=== PATIENT | female | born 1970 | race Caucasian/White ===

== ENCOUNTER 2020-03-15 10:38 | Emergency (ER) | payer MEDICARE, MEDICAID, SELFPAY ==
[2020-03-15 10:39] VITALS: BP 145/105; PULSE 97; RESP 18; TEMP 36; O2SAT 97; BMI 39.2
--- NOTE | 2020-03-15 11:43 | RAD_ITS ---
STUDY: X-RAY CHEST REASON FOR EXAM: Female, 49 years old. CHILLS, WEAKNESS/FATIGUE. BODY ACHES TECHNIQUE: AP upright portable view. COMPARISON: None. FINDINGS: Right IJ approach [id number] tip is in the SVC near the right upper atrial chamber. The lungs are clear and expanded. There is no demonstrated pleural abnormality. Normal size heart. Normal mediastinum and marisela. Normal visualized pulmonary arteries. Normal visualized aortic arch and descending thoracic aorta. Normal visualized thoracic spine. Normal visualized ribs, clavicles, and shoulders. There is no demonstrated abnormality of the visualized soft tissue structures of the upper abdomen. RAD/Chest 1 View (Portable) IMPRESSION: Normal x-ray examination of the chest. Electronically Signed: Miah Calabrese MD at 12:26 EST , Service support ,
--- NOTE | 2020-03-15 12:05 | ED.VIS.GEN ---
History of Present Illness Chief Complaint: Weakness Detail of Chief Complaint: Fever, Foul-smelling urine and respiratory symptoms Informant: Patient Onset: Days Context: Sudden Onset Timing: Continuous Quality: Infectious symptoms and urinary symptoms Location: Respiratory and Current Severity: Mild Maximum Severity: Moderate Worsened by: Dyspnea on exertion Relieved by: Nothing Associated Symptoms: Malaise, decreased appetite Narrative: Patient is a 49-year-old woman who went to urgent care because of fever, chills, dyspnea, mild cough, malaise, headache, aches and foul-smelling urine. Symptoms started several days ago. She reports generalized headache. Denies photophobia, neck pain or neck stiffness. She does report nausea without vomiting. She states she had some soft mushy stool. She denies blood or mucus in the stool. Denies black or maroon-colored stool. 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 Status: Acute (2) POTS (postural orthostatic tachycardia syndrome) Status: Acute (3) Hyperlipidemia Status: Acute (4) Raynauds disease Status: Acute (5) Neuropathic pain Status: Acute (6) History of venereal warts Status: Acute Past Medical History - Allergies and Home Meds Allergies/Adverse Reactions: Allergies No Known Allergies Allergy (Verified 12/07/18 14:25) Primary Care Physician: Gilson Bond DO [Primary Care Provider] - Prior records reviewed: Yes - Sjogren's disease Lives: Alone Smoking Status: Current every day smoker Alcohol: Rare Drugs: None Review of Systems General: Reports: Chills, Fever, Malaise Eyes: Denies: Visual changes - bilaterally, Blurred Vision - bilaterally ENT: Reports: Rhinorrhea, Sore throat. Denies: Bilateral ear pain Cardiovascular: Denies: Chest pain, Palpitations Respiratory: Reports: Dyspnea, Cough, Dyspnea on exertion. Denies: Sputum, Orthopnea, Paroxysmal nocturnal dyspnea Gastrointestinal: Reports: Nausea. Denies: Abdominal pain, Vomiting, Diarrhea, Melena, Hematochezia Genitourinary: Reports: - - Foul-smelling urine. Denies: Dysuria, Hematuria, Frequency Musculoskeletal: Reports: Myalgias, Extremity Pain. Denies: Swelling Skin: Denies: Rash, Wounds Neurological: Reports: Headache, Weakness, Parasthesia Psych: Reports: Depression Hematologic: Denies: Easy bruising, Easy bleeding Allergy: Denies: Uticaria Physical Exam Vital Signs/Narrative: Vital Signs Temp Pulse Resp BP Pulse Ox 03/15/20 10:39 96.8 F L 97 18 145/105 H 97 Inital Vital Signs reviewed: Yes General: Well nourished, Well developed, Obese Head: Normocephalic, Atraumatic Eyes: Perrl, EOMI. Negative for: Pale conjunctiva, Scleral icterus ENT: No rhinorrhea, TM's clear, Dry mucous membranes. Negative for: Moist mucous membranes Neck: Supple, Nontender, No lymphadenopathy, No JVD Cardiovascular: Regular rate, Regular rhythm, No murmurs, Normal S1, Normal S2 Respiratory: No distress, CTA bilaterally, Chest nontender Abdomen: Soft, Nontender, Nondistended, Normal bowel sounds, No masses Rectal: Deferred Back: Nontender, Normal Inspection. Negative for: CVA tenderness Extremities: Tenderness. Negative for: Calf Tenderness Skin: Normal color, No rash, No Trauma. Negative for: Cyanosis, Diaphoresis, Jaundice Neurological: Alert, Oriented x3, Cranial nerves II-XII grossly intact, Normal Strength, Normal Sensation Psychological: Depressed Diagnostic/Tx/Re-eval Impressions Chest X-Ray 03/15/20 11:43 IMPRESSION: Normal x-ray examination of the chest. Electronically Signed: Miah Calabrese MD at 12:26 EST , Service support , 03/15/20 11:43 Chest 1 View (Portable) [RAD] Stat 03/15/20 11:55 Mucosa - Nose SARS-CoV-2 Antigen (Rapid) - Final Laboratory Results 03/15/20 03/15/20 03/15/20 12:40 12:40 12:40 WBC 9.2 RBC 4.48 Hgb 13.6 Hct 39.8 MCV 88.8 MCH 30.4 MCHC 34.2 RDW Std Deviation 41.9 RDW Coeff of Cordelia 12.8 Plt Count 178 MPV 10.1 Immature Gran % (Auto) 0.500 Neut % (Auto) 81.3 H Lymph % (Auto) 7.4 L [place] % (Auto) 10.5 H Eos % (Auto) 0.1 Baso % (Auto) 0.2 Absolute Neuts (auto) 7.5 Absolute Lymphs (auto) 0.68 L Nucleated RBC % 0 Sodium 133 L Potassium 3.6 Chloride 100 Carbon Dioxide 26.0 Anion Gap 7 BUN 20 H Creatinine 0.96 Estim Creat Clear Calc 74.97 Est GFR (MDRD) Af Amer 78 Est GFR (MDRD) Non-Af 65 BUN/Creatinine Ratio 20.7 H Glucose 123 H Lactic Acid 0.9 Calcium 8.7 Total Bilirubin 0.70 AST 67 H ALT 63 H Alkaline Phosphatase 101 Total Protein 7.7 Albumin 2.8 L Globulin 4.9 H Albumin/Globulin Ratio 0.6 L Urine Color Urine Clarity Urine pH Ur Specific [place] Urine Protein Urine Glucose (UA) Urine Ketones Urine Occult Blood Urine Nitrite Urine Bilirubin Urine Urobilinogen Ur Leukocyte Esterase Urine RBC Urine WBC Ur Squamous Epith Cells Urine Bacteria Urine Mucus 03/15/20 13:25 WBC RBC Hgb Hct MCV MCH MCHC RDW Std Deviation RDW Coeff of Cordelia Plt Count MPV Immature Gran % (Auto) Neut % (Auto) Lymph % (Auto) [place] % (Auto) Eos % (Auto) Baso % (Auto) Absolute Neuts (auto) Absolute Lymphs (auto) Nucleated RBC % Sodium Potassium Chloride Carbon Dioxide Anion Gap BUN Creatinine Estim Creat Clear Calc Est GFR (MDRD) Af Amer Est GFR (MDRD) Non-Af BUN/Creatinine Ratio Glucose Lactic Acid Calcium Total Bilirubin AST ALT Alkaline Phosphatase Total Protein Albumin Globulin Albumin/Globulin Ratio Urine Color Yellow Urine Clarity Cloudy Urine pH 6.0 Ur Specific [place] 1.015 Urine Protein 100 H Urine Glucose (UA) Normal Urine Ketones 50 H Urine Occult Blood 250 H Urine Nitrite Positive H Urine Bilirubin 3 H Urine Urobilinogen 1 H Ur Leukocyte Esterase 500 H Urine RBC 25-50 SEEN Urine WBC >100 SEEN Ur Squamous Epith Cells 0-5 SEEN Urine Bacteria 1+ Urine Mucus 1+ Urine is consistent with infection. Macro was positive for blood, nitrites and leukoesterase. Micro is remarkable for 25-50 RBCs with greater than 100 WBCs and 1+ bacteria with 0-5 squamous epithelial cells. White count is normal. Lactate is normal. Since she has repeat ported fever will obtain culture treat with antibiotics. - Medical Decision Making Need to evaluate for urinary tract infection, need to evaluate for viral infection and specifically Covid, pneumonia. [facility] blood work was ordered, testing for Covid and chest x-ray. A UA was obtained as well. ED Disposition - Plan for ED Patient: Disposition: Home or Assisted Living Diagnosis: Complicated urinary tract infection, Dyspnea Instructions: ED CYSTITIS Female Adult Prescriptions: Cephalexin [Keflex] 500 mg PO Q6 #40 cap Prescription Printed Referrals: Gilson Bond DO [Primary Care Provider] - 3-5 Days
[2020-03-15 12:57] LABS: Absolute Lymphocyte Count 0.68 X10^3/uL (0.83-4.51); Absolute Neutrophil Count 7.5 X10^3/uL (2.0-7.7); Basophil# 0.02 X10^3/uL; Basophil% 0.2 % (0-1); Eosinophil# 0.01 X10^3/uL; Eosinophils% 0.1 % (0-5); Hematocrit 39.8 % (37-47); Hemoglobin 13.6 g/dL (12.0-15.0); Lymphocyte # 0.68 X10^3/ul (4.0); Lymphocyte % 7.4 % (19-41); Mean Corp Hgb Conc 34.2 g/dL (32-36); Mean Corpuscular Hgb 30.4 pg (27.0-32.0); Mean Corpuscular Volume 88.8 fL (81-99); Mean Platelet Vol. 10.1 fl (6.2-12.0); Monocyte# 0.96 X10^3/uL; Monocyte% 10.5 % (0-10); NRBC Flagged by Analyzer 0 % (0-5); Neutrophil # 7.46 X10^3/uL (2.7-7.7); Neutrophil % 81.3 % (47-70); Platelet Count 178 K/mm3 (150-450); RBC Distribution Width CV 12.8 % (11.6-14.6); RBC Distribution Width SD 41.9 fl (35.1-43.9); Red Blood Count 4.48 M/mm3 (4.2-5.4); White Blood Count 9.2 K/mm3 (4.4-11.0)
[2020-03-15 13:13] LABS: ALB/GLOB Ratio 0.6 RATIO (0.9-2.4); AST(SGOT) 67 U/L (15-37); Alanine Aminotransfer ALT/SGPT 63 U/L (13-56); Albumin, Serum 2.8 g/dL (3.2-5.0); Alkaline Phosphatase 101 U/L (45-117); Anion Gap 7 (5-15); BUN 20 mg/dL (7-18); BUN/Creat Ratio 20.7 RATIO (10-20); Calcium,Total 8.7 mg/dL (8.5-10.1); Chloride 100 mmol/L (98-107); Creatinine, Serum 0.96 mg/dL (0.55-1.02); EST Glomerular Filtration Rate 65 mL/min (>60); Est Glom Filt Rate - Afr Amer 78 mL/min (>60); Estimated Creatinine Clearance 74.97 ml/min; Globulin 4.9 g/dL (2.2-4.2); Glucose 123 mg/dL (74-106); Potassium 3.6 mmol/L (3.5-5.1); Protein, Total 7.7 g/dL (6.4-8.2); Sodium Level 133 mmol/L (136-145)
[2020-03-15 13:16] VITALS: BP 123/61; PULSE 84; RESP 16; O2SAT 94
[2020-03-15 13:28] LABS: Lactic Acid 0.9 mmol/L (0.4-1.9)
[2020-03-15 13:39] LABS: Color, Urine Yellow (Yellow); Glucose, Dipstick Normal (Normal); Ketone-Dipstick 50 mg/dl (Negative); Leukocyte Esterase-Dipstick 500 /ul (Negative); Nitrite-Dipstick Positive (Negative); Occult Blood-Urine 250 /ul (Negative); Protein-Dipstick 100 mg/dl (Negative); Specific Gravity, Urine 1.015 (1.002-1.030); Urine Clarity Cloudy (Clear); Urine Urobilinogen 1 mg/dl (Normal)
[2020-03-15 14:00] LABS: Urine Bilirubin Dipstick 3 mg/dL (Negative)
[2020-03-15 14:53] LABS: Mucous, Urine 1+ /hpf (<or=2+)
[2020-03-15 14:54] LABS: Red Blood Cells-Urine 25-50 SEEN /hpf (0-5); Squamous Epithelial Cells - UA 0-5 SEEN /hpf (5-10); White Blood Cells >100 SEEN /hpf (0-5)
[2020-03-15 14:55] LABS: Bacteria 1+ /hpf (None Seen)
[2020-03-15 15:02] VITALS: PULSE 88; RESP 20; O2SAT 99
[2020-03-15] MEDS: Ceftriaxone 1 GM/50 ML BAG IV (15:25)
[2020-03-15 16:21] VITALS: BP 140/79; PULSE 88; RESP 16; O2SAT 99
== END 2020-03-15 16:22 | disposition home or self-care (01) ==
PROVIDERS: Emergency Provider Emergency Medicine; PCP Student in an Organized Health Care Education/Training Program
DX: N39.0 Urinary tract infection, site not specified (principal); R06.09 Other forms of dyspnea; R50.9 Fever, unspecified; R09.89 Other specified symptoms and signs involving the circulatory and respiratory systems; R53.81 Other malaise; R51.9 Headache, unspecified; R05 Cough; R11.0 Nausea; E78.5 Hyperlipidemia, unspecified; I73.00 Raynaud's syndrome without gangrene; E66.9 Obesity, unspecified; F17.200 Nicotine dependence, unspecified, uncomplicated; Z79.899 Other long term (current) drug therapy
CPT/HCPCS: 71045; 80053; 81001; 83605; 85025; 87040; 87086; 87088; 87186; 87426; 96365; 99284; J7050; A4216

== ENCOUNTER 2022-03-27 19:09 | Emergency (ER) | payer OTHER, MEDICARE, SELFPAY ==
[2022-03-27 19:11] VITALS: BP 137/72; PULSE 71; RESP 14; TEMP 36.8; O2SAT 100; BMI 35.1
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
[2022-03-27] MEDS: oxyCODONE 5 MG Tablet PO (20:19)
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
== END 2022-03-27 22:22 | disposition home or self-care (01) ==
PROVIDERS: Emergency Provider Emergency Medicine; PCP Student in an Organized Health Care Education/Training Program; Visit Provider Emergency Medicine
DX: M62.838 Other muscle spasm (principal); R51.9 Headache, unspecified; E78.2 Mixed hyperlipidemia; F41.9 Anxiety disorder, unspecified; F32.9 Major depressive disorder, single episode, unspecified; M47.812 Spondylosis without myelopathy or radiculopathy, cervical region; M79.7 Fibromyalgia; N39.46 Mixed incontinence; I73.00 Raynaud's syndrome without gangrene; G25.82 Stiff-man syndrome; F17.210 Nicotine dependence, cigarettes, uncomplicated; Z79.899 Other long term (current) drug therapy
CPT/HCPCS: 70450; 71046; 72125; 99282

== ENCOUNTER 2025-02-13 14:06 | Emergency (ER) | payer MEDICARE, SELFPAY ==
[2025-02-13 14:07] VITALS: BP 165/80; PULSE 60; RESP 16; TEMP 36.8; O2SAT 98; BMI 35.4
--- NOTE | 2025-02-13 14:16 | EX.ED.UPPERE ---
HPI History of Present Illness Chief Complaint: Laceration Narrative Narrative: 54-year-old female, [id number], presents with laceration to her left that she sustained 2 to 3 hours ago. She states that she was cleaning a big piece of [place] when it broke. She sustained a laceration to the dorsum of her left thumb over the joint. She states she could not get it to stop bleeding. She had actually gone to urgent care where they told her that the cut was too deep, and that has its over the joint, I had ran a high risk of infection. She has history of Raynaud's disease. She presents with a laceration over her thumb, and the need for tetanus immunization. She thinks her last tetanus immunization was in 2013. 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 Chronic pain Raynaud disease Sjogren's disease POTS (postural orthostatic tachycardia syndrome) Neuropathic pain Urinary incontinence Hidradenitis suppurativa Melasma Cervical spondylolysis Lumbago Mixed incontinence urge and stress Fibromyalgia Stiff person syndrome Home Medications ?Medication ?Instructions ?Recorded ?Last Taken ?Type baclofen 20 mg tablet 20 mg PO BID 06/04/13 Unknown History duloxetine 30 mg capsule,delayed 90 mg PO DAILY 06/04/13 Unknown History release etodolac 300 mg capsule 300 mg PO BIDCM 06/04/13 Unknown History furosemide 20 mg tablet 20 mg PO BIDLX 06/04/13 Unknown History lidocaine 5 % topical patch 1 patch topical DAILY 06/04/13 Unknown History oxybutynin chloride 5 mg tablet 5 mg PO TID 06/04/13 Unknown History pregabalin 300 mg capsule (Lyrica) 300 mg PO BID 06/04/13 Unknown History tramadol 50 mg tablet 100 mg PO Q4H PRN PRN Pain 06/04/13 Unknown History cephalexin 500 mg capsule 500 mg PO Q6 #40 caps 03/15/20 Unknown Rx hydrocodone-acetaminophen 5-325mg 1 tab PO Q6H PRN pain 3 days #10 03/27/22 Unknown Rx 5mg-325mg tabs Allergy/AdvReac Type Severity Reaction Status Date / Time levofloxacin (From Levaquin) AdvReac Mild bad tendons Verified 02/13/25 14:08 Social History Smoking Status: Current every day smoker tobacco type: cigarettes ROS ROS ED ROS Narrative Review of systems is positive for 2 cm laceration to left thumb. Needs tetanus immunization. No other injury. EXAM Physical Exam Narrative Exam Narrative: Afebrile. Vital signs noted. Nontoxic-appearing. Focused examination of the left thumb does show a 2 cm laceration running diagonally on the dorsum of the left thumb. It does cross over the MP joint. There is no apparent tendon involvement through full range of motion. Able to flex and extend at IP joint. Able to oppose thumb. Good capillary refill. No active bleeding. Const Vital Signs: 02/13/25 14:07 Temperature 98.3 F Temperature Source Oral Pulse Rate 60 Respiratory Rate 16 Blood Pressure 165/80 H Blood Pressure Mean 108 Pulse Ox 98 Oxygen Delivery Method Room Air MDM MDM MDM Narrative Medical decision making narrative: No feel differential diagnosis is indicated. I do not feel she needs an x-ray of her thumb as this was not a crush injury. She has normal range of motion. She was told of the risk of infection and scarring and acknowledges understanding. See procedure note for wound closure. Patient ordered a Boostrix intramuscular injection/immunization. See procedure note for details. Patient is to have the 7 simple interrupted sutures removed either by her primary care provider or return to the emergency department in 7 to 10 days. She was told to look for signs of infection including drainage of pus from the wound, fever, or increased redness/red streak up her hand and forearm. IFISH can take [id number] medications as needed for pain. Return instructions to the emergency department were reviewed. Disposition is discharged home in stable condition. Procedures Lacerations Left thumb: Length: 0.79 in Depth: Skin Shape: Linear Prep: Sterile Conditions Laceration repair: Lidocaine, Local and Skin sutures Number of Sutures/Daniel: 7 Suture Information: Ethilon, Simple and 5-0 Comment: Patient tolerated procedure well Discharge Plan Triage Chief Complaint: Laceration ED Provider: Miah Mejía Dx/Rx/DC Orders Clinical Impression: Laceration of thumb, left, Need for Tdap vaccination Instructions: ED Hand Laceration- All Closures Prescriptions: No Action etodolac 300 MG capsule 300 mg PO BIDCM tramadol 50 MG tablet 100 mg PO Q4H PRN PRN (Reason: Pain) baclofen 20 MG tablet 20 mg PO BID lidocaine 1 PATCH patch 1 patch topical DAILY furosemide 20 MG tablet 20 mg PO BIDLX oxybutynin chloride 5 MG tablet 5 mg PO TID duloxetine 30 MG capsule 90 mg PO DAILY pregabalin [Lyrica] 300 MG capsule 300 mg PO BID cephalexin 500 MG capsule 500 mg PO Q6 Qty: 40 0RF hydrocodone-acetaminophen 5-325 mg tablet 1 tab PO Q6H PRN (Reason: pain) 3 Days Qty: 10 0RF Primary Care Provider: Gilson Bond Referrals: Gilson Bond, [Primary Care Provider, Medical] - 10 Day for suture removal Activity Restrictions/Additional Instructions: Have sutures removed in 7 to 10 days by primary care provider or return to the emergency department. [id number] medications like Tylenol or ibuprofen for pain. Return with fever, red streaking up your hand/arm, new or worsening symptoms. Print Language: Arabic Disposition Disposition: Home, Self Care
[2025-02-13] MEDS: Lidocaine 1% (20 ml mdv) 20 ML Vial INFILT (14:23)
[2025-02-13 16:02] VITALS: BP 165/80; PULSE 60; RESP 16; TEMP 36.8; O2SAT 98
== END 2025-02-13 16:03 | disposition home or self-care (01) ==
PROVIDERS: Emergency Provider Emergency Medicine; PCP Student in an Organized Health Care Education/Training Program; Visit Provider Emergency Medicine
DX: S61.012A Laceration without foreign body of left thumb without damage to nail, initial encounter (principal); E78.2 Mixed hyperlipidemia; W26.8XXA Contact with other sharp object(s), not elsewhere classified, initial encounter; Y93.89 Activity, other specified; F41.8 Other specified anxiety disorders; Z79.899 Other long term (current) drug therapy; F17.210 Nicotine dependence, cigarettes, uncomplicated
CPT/HCPCS: 12001; 90715; 99284